=== PATIENT | female | born 1950 | race Caucasian/White ===

== ENCOUNTER 2023-04-06 09:45 | Day surgery (SDC) | payer MEDICARE ==
[~2023-04-06 09:45] MED LIST: Sodium Chloride 0.9% 10 ML Syringe FLUSH PRN
[2023-04-06] MEDS ORDERED: Propofol 200 MG/20 ML SDV IV ONE (09:46)
[2023-04-06] MEDS: Sodium Chloride 0.9% 1,000 ML IV SCH (10:16)
== END 2023-04-06 12:25 | disposition home or self-care (01) ==
LOC: KA.SDS 09:45
PROVIDERS: ATTEND Family Medicine
DX: Z12.11 Encounter for screening for malignant neoplasm of colon (principal); D12.6 Benign neoplasm of colon, unspecified; K62.1 Rectal polyp; K57.30 Diverticulosis of large intestine without perforation or abscess without bleeding; K64.8 Other hemorrhoids; I10 Essential (primary) hypertension; E11.9 Type 2 diabetes mellitus without complications; E55.9 Vitamin D deficiency, unspecified; Z79.84 Long term (current) use of oral hypoglycemic drugs; Z79.82 Long term (current) use of aspirin; Z79.899 Other long term (current) drug therapy
CPT/HCPCS: 45380; 82947; J2704; J7030; 00812; J3490